=== PATIENT | female | born 2000 | race Caucasian/White ===

== ENCOUNTER 2022-08-26 13:03 | Emergency (ER) | payer OTHER, BC, SELFPAY ==
[2022-08-26 13:35] VITALS: BP 152/86; PULSE 78; RESP 18; TEMP 36.5; O2SAT 100
--- NOTE | 2022-08-26 14:25 | ED.URI ---
HPI - URI/Sore Throat General Chief Complaint: Upper Respiratory Infection Stated Complaint: sore throat cough achey Time Seen by Provider: 08/26/22 14:25 Source: patient, RN notes reviewed and old records reviewed Mode of arrival: ambulatory Limitations: no limitations History of Present Illness HPI Narrative: 21 year old female who presents to [facility] care with complaints of severe sore throat since Fiday with ears hurting, neck hurting and her lower back hurting also. Patient reports that she has had a low grade fever, has not taken any OTC medication for her symptoms has used her inhaler. Patient reports that she has had COVID vaccination but did not take home COVID test. MD elicited complaint: cough, sore throat and other (body aches) Pain scale (0-10): 5 Treatments prior to arrival: none Related Data Home Medications Medication Instructions Recorded Confirmed norethindrone acetate 1 mg-ethinyl tablet 08/26/22 estradiol 20 mcg tablet Allergies Allergy/AdvReac Type Severity Reaction Status Date / Time No Known Allergies Allergy Unverified 08/26/22 13:38 Review of Systems Review of Systems: CONSTITUTIONAL: Denies malaise, chills, sweats, or fever. EYES: Denies visual changes, redness, or discharge. ENT: Reports rhinorrhea, congestion, sinus pain, otalgia and sore throat. CARDIOVASCULAR: Denies chest pain, palpitations, or edema. RESPIRATORY: Reports cough.? Denies dyspnea. GASTROINTESTINAL: Denies abdominal pain, nausea, vomiting, diarrhea SKIN: Denies rash or itching. MUSCULOSKELETAL: Reports myalgia. NEUROLOGIC: Denies headache. All systems reviewed & are unremarkable except as noted in HPI and below [facility] Past Medical History Medical History (Updated 09/02/22 @ 14:19 by Katelyn Noonan NP) Asthma Surgical History Surgical History (Updated 09/02/22 @ 14:20 by Katelyn Noonan NP) History of tonsillectomy and adenoidectomy Hx of appendectomy S/P foot surgery, right Social History Social History (Updated 09/02/22 @ 14:21 by Katelyn Noonan NP) Smoking status: Never smoker Alcohol intake: current Alcohol use details: social Substance use type: does not use Gender identity (if verbalized by the patient): Female Comments At time of signature, agree with nursing past medical, surgical, social and family history. There is no relevant family history pertinent to the presenting complaint Exam Narrative: GENERAL: Well-appearing, well-nourished, and in no acute distress. HEAD: Normocephalic EYES: PERRLA, conjunctivae clear ENT: Nares clear, turbinates edematous and erythematous, clear discharge. Mucous membranes moist. TM pearly barragan with dull light reflex bilaterally; no tragal tenderness. Oropharynx erythematous without lesions. Tonsils not present and without pharynx exudate, no drooling, no hoarseness, no trismus, uvula midline.post nasal drainage NECK: Supple. No lymphadenopathy CHEST: Clear to auscultation, breath sounds equal. No wheezing, rhonchi, rales, or stridor. No respiratory distress, speaks in full sentences.cough SAO2 100% on room air HEART: Regular rate and rhythm. No murmur heard. SKIN: Warm, dry, no rash. NEURO: Alert and oriented x3. PSYCH: Normal mood and affect Course Course Emergency Course: Patient is aware of diagnosis, understands and agrees to treatment plan.? Anticipatory guidance given.? Patient agrees to follow-up as directed and is aware of reasons to seek care at the emergency department. Portions of this record may have been created with voice recognition software Level of Care: Express Care Visit Vital Signs Vital signs: Vital Signs Temperature 36.5 C 08/26/22 13:35 Pulse Rate 78 08/26/22 13:35 Respiratory Rate 18 08/26/22 13:35 Blood Pressure 152/86 H 08/26/22 13:35 Pulse Oximetry 100 08/26/22 13:35 Oxygen Delivery Room Air 08/26/22 13:35 Temperature 36.5 C 08/26/22 13:35 Pul
== END 2022-08-26 14:43 | disposition home or self-care (01) ==
PROVIDERS: Emergency Provider Registered Nurse; PCP Physician Assistant
DX: J06.9 Acute upper respiratory infection, unspecified (principal); Z20.822 Contact with and (suspected) exposure to COVID-19; J45.909 Unspecified asthma, uncomplicated
CPT/HCPCS: 87081; 87426; 87804; 87880; 99213; C9803; G0463